=== PATIENT | male | born 1990 | race Hispanic/Latino ===

== ENCOUNTER 2017-04-25 09:05 | Emergency (ER) | payer SELFPAY ==
[2017-04-25 11:40] LABS: Bilirubin,Urine NEG (Negative); Blood,Urine NEG (Negative); Color,Urine Yellow (Yellow); Mucus,Urine 2+ /HPF; Nitrite,Urine NEG (Negative)
[2017-04-25] MEDS ORDERED: NORCO 5/325 PO ONE (14:08)
--- NOTE | 2017-04-25 14:10 | XRay Report ---
LUMBOSACRAL SPINE, 3 VIEWS: History: Lower back pain Findings: Normal bone mineralization. There is straightening of the normal lumbar lordosis. This could be related to muscular spasm. No evidence for compression deformity, subluxation, bone lesion or significant degenerative changes. The sacrum and SI joints are within normal limits. Impression: Straightening of the normal lordosis. No acute process.
--- NOTE | 2017-04-25 14:23 | Emergency Department Report ---
ED Back Pain/Injury HPI - General Chief Complaint: Back Pain/Injury Stated Complaint: BACK PAIN Time Seen by Provider: 04/25/17 12:54 Source: patient Limitations: No Limitations - History of Present Illness Initial Comments: 26-year-old male past medical history none presents with complaint of sensation of back pain which began while getting up out of bed this morning. Patient states he felt popping sensation in his back while getting up. States he felt muscle spasms associated with it. Pain has somewhat subsided but is still present. Denies upper or lower extremity paresthesias. Denies bladder or bowel incontinence. Patient is fully lucid awake alert and oriented 3. Denies any direct trauma to back or any falls. Denies any dysuria hematuria or increased urinary frequency. Patient denies abdominal pain fever chills chest pain shortness of breath nausea or vomiting. MD Complaint: back pain -: This morning Place: home Radiation: none Severity: moderate Quality: sharp Consistency: intermittent Improves With: none Worsens With: movement Context: while lifting, turning/twisting, bending Associated Symptoms: denies other symptoms Treatments Prior to Arrival: cold therapy - Related Data Previous Rx's Medication Instructions Recorded Last Taken Type Cyclobenzaprine [Flexeril] 10 mg PO TID PRN #15 tablet 04/25/17 Unknown Rx Naproxen 500 mg PO BID PRN #30 tablet 04/25/17 Unknown Rx Allergies Allergy/AdvReac Type Severity Reaction Status Date / Time Penicillins Allergy Rash Verified 04/25/17 09:13 ED Review of Systems ROS: Stated complaint: BACK PAIN Other details as noted in HPI Constitutional: denies: chills, fever Eyes: denies: eye pain, eye discharge, vision change ENT: denies: ear pain, throat pain Respiratory: denies: cough, shortness of breath, wheezing Cardiovascular: denies: chest pain, palpitations Endocrine: no symptoms reported Gastrointestinal: denies: abdominal pain, nausea, diarrhea Genitourinary: denies: urgency, dysuria Musculoskeletal: back pain. denies: joint swelling, arthralgia Skin: denies: rash, lesions Neurological: denies: headache, weakness, paresthesias Psychiatric: denies: anxiety, depression Hematological/Lymphatic: denies: easy bleeding, easy bruising ED Past Medical Hx - Past Medical History Previous Medical History?: Yes Additional medical history: Back pain - Surgical History Past Surgical History?: No - Social History Smoking Status: Current Every Day Smoker Substance Use Type: Alcohol, Marijuana, Non Opiate Pain - Medications Home Medications: Home Medications Medication Instructions Recorded Confirmed Last Taken Type Cyclobenzaprine [Flexeril] 10 mg PO TID PRN #15 tablet 04/25/17 Unknown Rx Naproxen 500 mg PO BID PRN #30 tablet 04/25/17 Unknown Rx ED Physical Exam - General Limitations: No Limitations General appearance: alert, in no apparent distress - Head Head exam: Present: atraumatic, normocephalic - Eye Eye exam: Present: normal appearance, PERRL, EOMI - ENT ENT exam: Present: mucous membranes moist - Neck Neck exam: Present: normal inspection, full ROM - Respiratory Respiratory exam: Present: normal lung sounds bilaterally. Absent: respiratory distress - Cardiovascular Cardiovascular Exam: Present: regular rate, normal rhythm. Absent: systolic murmur, diastolic murmur, rubs, gallop - GI/Abdominal GI/Abdominal exam: Present: soft (abdomen soft nontender nondistended 4 quadrants), normal bowel sounds - Rectal Rectal exam: Present: deferred - Extremities Exam Extremities exam: Present: normal inspection - Back Exam Back exam: Present: normal inspection, CVA tenderness (R) (some right-sided CVA tenderness on deep percussion), paraspinal tenderness (some paraspinal right- sided CVA tenderness) - Neurological Exam Neurological exam: Present: alert, oriented X3, CN II-XII intact, normal gait - Expanded Neurological Exam Expanded Patient oriented to: Present: person, place, time Cranial nerves: EOM's Intact: Normal, Facial Sensation: Normal Cerebellar function: Finger to Nose: Normal, Heel to Chavez: Normal, Romberg: Normal Sensory exam: Upper Extremity Light Touch: Normal, Lower Extremity Light Touch: Normal Motor strength exam: RUE: 5, LUE: 5, RLE: 5, LLE: 5 Best Eye Response (Alicia): (4) open spontaneously Best Motor Response (Echo): (6) obeys commands Best Verbal Response (Echo): (5) oriented Alicia Total: 15 - Psychiatric Psychiatric exam: Present: normal affect, normal mood - Skin Skin exam: Present: warm, dry, intact, normal color. Absent: rash ED Course Vital Signs 04/25/17 09:14 Temperature 98.2 F Pulse Rate 81 Respiratory 20 Rate Blood Pressure 123/74 O2 Sat by Pulse 98 Oximetry ED Medical Decision Making - Medical Decision Making A/P: Back pain, neck muscle spasm 1-naproxen and Flexeril when necessary 2-follow-up with primary care and orthopedics 3-x-ray L-spine and CT abdomen unremarkable, urinalysis unremarkable 4-vital signs stable for discharge. Cranial nerves 2, 3, 4, 5, 6, 7, 8,10, 11, 12 intact on clinical exam, patient is fully lucid awake alert and oriented 3 conversant. Denies any upper or lower extremity paresthesias and has 5/5 strength in bilateral upper and lower extremities on clinical exam. No bladder or bowel incontinence. No clinical signs of cauda equina 5- pt independently ambulatory without assistance upon discharge Critical care attestation.: If time is entered above; I have spent that time in minutes in the direct care of this critically ill patient, excluding procedure time. ED Disposition Clinical Impression: Muscle spasm Back pain Qualifiers: Back pain location: low back pain Chronicity: acute Back pain laterality: right Sciatica presence: without sciatica Qualified Code(s): M54.5 - Low back pain Disposition: DC- TO HOME OR SELFCARE Is pt being admited?: No Does the pt Need Aspirin: No Condition: Stable Instructions: Muscle Spasm (ED), Back Pain (ED), Acute Low Back Pain (ED), Low Back Strain (ED) Prescriptions: Cyclobenzaprine [Flexeril] 10 mg PO TID PRN #15 tablet PRN Reason: Muscle Spasm Naproxen 500 mg PO BID PRN #30 tablet PRN Reason: Pain Referrals: [facility] [Outside] - 3-5 Days [facility] [Outside] - 3-5 Days [facility] [Provider Group] - 3-5 Days Forms: Work/School Release Form(ED) Time of Disposition: 15:23
--- NOTE | 2017-04-25 15:02 | Cat Scan Report ---
CT ABDOMEN PELVIS WITHOUT CONTRAST: HISTORY: Sudden onset right CVA pain. COMPARISON: none. TECHNIQUE: Helical CT in 1.25mm intervals without IV contrast. Sagittal and coronal reconstructions. FINDINGS: Lung bases: Normal. Liver: Normal. Biliary system: Normal. Pancreas: Normal. Spleen: Normal. Kidneys/ureters/bladder: Normal. Adrenal glands: Normal.. Aorta: Normal. Intestines: Normal. Appendix: Normal. Pelvic viscera: Normal. Ascites: None. Adenopathy: None. Musculoskeletal: Intact. 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 IMPRESSION: Unremarkable CT scan of the abdomen and pelvis without contrast. No nephrolithiasis is identified
[2017-04-25 15:37] VITALS: BP 124/73
== END 2017-04-25 15:36 | disposition home or self-care (01) ==
LOC: ED 09:05
DX: M54.5 Low back pain (principal); M62.830 Muscle spasm of back; M54.2 Cervicalgia; F17.200 Nicotine dependence, unspecified, uncomplicated; F12.10 Cannabis abuse, uncomplicated; R10.9 Unspecified abdominal pain; Z88.0 Allergy status to penicillin
CPT/HCPCS: 72100; 74176; 81001